=== PATIENT | male | born 1975 | race Caucasian/White ===

== ENCOUNTER 2021-03-19 09:29 | Emergency (ER) | payer OTHER ==
[~2021-03-19] VITALS: Ht 188 cm; Wt 108.9 kg
[2021-03-19 10:14] LABS: ABSOLUTE LYMPHOCYTES 0.9 thou/uL (0.8-5.3); ABSOLUTE MONOCYTES 0.3 thou/uL (0.0-1.2); ABSOLUTE NEUTROPHILS 1.6 thou/uL (1.6-8.1); BASOPHILS 0.4 %; EOSINOPHILS 0.2 %; HEMATOCRIT 41.4 % (42.0-52.0); HEMOGLOBIN 14.6 gm/dL (14.0-18.0); LYMPHOCYTES 32.2 %; MCH 31.5 pg (26.0-34.0); MCHC 35.3 g/dL (28.0-37.0); MCV 89.3 fL (80.0-100.0); MONOCYTES 11.5 %; MPV 7.6 fl. (7.2-11.1); NUCLEATED RBCS 0 /100WBC; PLATELET COUNT* 122 thou/uL (150-400); POLYS 55.7 %; RBC 4.63 mil/uL (4.50-6.00); RDW-CV 13.4 % (10.5-14.5); WBC 2.9 thou/uL (4.0-11.0)
[2021-03-19 10:30] LABS: CREATININE 1.1 mg/dL (0.6-1.3); POTASSIUM 4.3 mmol/L (3.5-5.1)
[2021-03-19 10:34] LABS: ALBUMIN 3.2 g/dL (3.4-5.0); TOTAL BILIRUBIN 0.5 mg/dL (<0.1-1.0); TOTAL PROTEIN 7.3 g/dL (6.4-8.2)
[2021-03-19] MEDS ORDERED: FLEXERIL PO (11:03)
[2021-03-19] MEDS ORDERED: ZOFRAN ODT4 MG DISSOLVE (11:03)
[2021-03-19 11:15] VITALS: BP 114/63
--- NOTE | 2021-03-19 15:17 | EKG ---
[place] [address] ELECTROCARDIOGRAM REPORT Name: AMANDA BERMUDEZ V Room: [facility]#: [id number] Admission: 03/19/21 Attend Phys: Discharge: 03/19/21 Date of : 77 Date of Service: 03/19/2144 Report #: [id number] THIS REPORT FOR: //name// [facility] ED Test Date: 2021-03-19 Test Time: 09:44:29 Pat Name: AMANDALAKEISHA BERMUDEZ Department: Room: Gender: Systems Programmer Analyst[facility] 1975 Requested By: Bill Jeffries Order Number: [id number] MD: Romario Mancini Measurements Intervals [place] Rate: 76 P: 61 PA: 136 QRS: 61 QRSD: 82 T: 61 QT: 348 QTc: 392 Interpretive Statements Sinus rhythm No previous ECG available for comparison Electronically Signed On 03-19-2021 15:17:41 CDT by Romario Mancini [email or web address] <ELECTRONICALLY SIGNED> By: Romario Mancini MD, [facility] 03/19/21 1517 Romario [email or web address] MD, FACC /EPI
== END 2021-03-19 11:15 | disposition home or self-care (01) ==
LOC: M.ERS 09:29
PROVIDERS: Emergency Medicine Emergency Medical Services
DX: U07.1 COVID-19 (principal)